=== PATIENT | female | born 1985 | race African-American/Black ===

== ENCOUNTER 2025-03-19 03:33 | Emergency (ER) | payer MEDICAID ==
[~2025-03-19] VITALS: Ht 157.5 cm; Wt 98.0 kg
[2025-03-19 04:15] VITALS: O2SAT 100
[2025-03-19 04:39] LABS: BASOPHILS % 0.6 % (0.0-2.0); EOSINOPHILS % 0.1 % (0.0-5.0); HEMATOCRIT. 38.4 % (36.0-48.0); HEMOGLOBIN. 12.2 g/dL (12.0-16.0); LYMPHOCYTES % 16.8 % (20.0-50.0); MEAN PLATELET VOLUME 8.3 fl (7.4-10.4); MONOCYTES % 3.5 % (2.0-8.0); NEUTROPHILS % 79.0 % (40.0-76.0); PLATELET 297 x1000/uL (130-400); RED BLOOD CELL COUNT 4.94 mill/uL (4.2-5.4); RED CELL DISTRIBUTION WIDTH 14.6 % (11.6-14.6)
[2025-03-19] MEDS: ONDANSETRON HCL 4MG TABLET PO ONE (04:50)
[2025-03-19] MEDS: ACETAMINOPHEN 325MG TABLET PO ONE (04:50)
[2025-03-19 05:02] LABS: CREATININE 0.8 mg/dL (0.6-1.0); UREA NITROGEN BLOOD 5 mg/dL (9-23)
[2025-03-19 05:03] LABS: PROTEIN TOTAL 6.7 g/dL (6.0-8.3)
[2025-03-19 05:04] LABS: ASPARTATE AMINOTRANSFERASE 33 IU/L (<34); BILIRUBIN DIRECT 0.3 mg/dL (<=3.0); BILIRUBIN TOTAL 0.8 mg/dL (0.1-1.0)
[2025-03-19] MEDS ORDERED: ACET-2708 MT (05:46)
[2025-03-19] MEDS ORDERED: ONDA4TAB50 MT (05:46)
[2025-03-19 05:56] VITALS: BP 143/70; PULSE 60; RESP 16; TEMP 36.7; O2SAT 100
[2025-03-19 06:14] LABS: CLARITY URINE CLOUDY (CLEAR); COLOR URINE YELLOW (YELLOW); GLUCOSE URINE TRACE (NEGATIVE); KETONES URINE 4+ (NEGATIVE); LEUKOCYTE ESTERASE URINE TRACE (NEGATIVE); NITRITE URINE NEGATIVE (NEGATIVE); OCCULT BLOOD URINE NEGATIVE (NEGATIVE); PH URINE 6.5 (4.5-8.0); PROTEIN URINE NEGATIVE (NEGATIVE); SPECIFIC GRAVITY URINE 1.022 (1.005-1.030); UROBILINOGEN URINE 1.0 E.U./dL (0.2-1.0)
[2025-03-19 07:23] LABS: SQUAMOUS EPITHELIAL CELL URINE 3+ /lpf (RARE/1+)
[2025-03-19 07:24] LABS: RBC URINE 0-2 /hpf (0-2); WBC URINE 0-2 /hpf (0-2)
[2025-03-19 07:25] LABS: BACTERIA URINE TRACE
== END 2025-03-19 05:59 | disposition home or self-care (01) ==
LOC: ER 03:33
DX: K80.10 Calculus of gallbladder with chronic cholecystitis without obstruction (principal); K76.0 Fatty (change of) liver, not elsewhere classified
CPT/HCPCS: 99284; 76705; 80076; 80048; 81003; 81025; 83690; 85025; 36415; Q0162